=== PATIENT | male | born 1975 | race Caucasian/White ===

== ENCOUNTER 2018-05-25 22:39 | Observation (INO) | payer MEDICARE, BC ==
[2018-05-25] MEDS ORDERED: IPRATROPIUM-ALBUTEROL 3 ML NEB INHALATION STA (23:27)
[2018-05-25] MEDS ORDERED: predniSONE 20 MG TAB PO STA (23:27)
--- NOTE | 2018-05-25 23:29 | ED ---
SOB HPI - General Chief Complaint: Shortness of Breath Stated Complaint: Swallowed FB Time Seen by Provider: 05/25/18 23:19 Source: patient Mode of arrival: ambulatory Limitations: no limitations - History of Present Illness Initial Comments: 42-year-old male with history of COPD presenting with worsening shortness of breath. Patient states that he had tooth pulled the Saturday before last and had gauze in the tooth area. Three days ago he had a coughing fit and felt himself inhale the gauze. Since then he has had a foreign body sensation in the anterior aspect of his neck and worsening shortness of breath. Patient states he was normally on chronic steroids but stopped taking them secondary to having the tooth pulled. He has also been sleeping in his garage and scraping the malone on his house. He was wearing a mask but not a respirator. States he has completed his course of antibiotics. He denies ever being intubated for COPD. He denies using home O2. - Related Data Home Medications Medication Instructions Recorded Confirmed Albuterol Inhaler [Ventolin Hfa 2 puff INHALATION RT-Q6H PRN 05/26/18 05/26/18 Inhaler] Cetirizine HCl [Zyrtec] 10 mg PO DAILY 05/26/18 05/26/18 Ipratropium-Albuterol Nebulize 3 ml INHALATION RT-QID PRN 05/26/18 05/26/18 [Duoneb 0.5 mg-3 mg/3 ml Soln] Montelukast [Singulair] 10 mg PO HS 05/26/18 05/26/18 Previous Rx's Medication Instructions Recorded Albuterol Inhaler [Ventolin Hfa 1 - 2 puff INHALATION RT-Q6H PRN 05/27/18 Inhaler] 30 Days #1 inhaler Cefuroxime Axetil [Ceftin] 500 mg PO BID 8 Days #16 tab 05/27/18 Ipratropium-Albuterol Nebulize 3 ml INHALATION QID 30 Days #3 box 05/27/18 [Duoneb 0.5 mg-3 mg/3 ml Soln] Montelukast [Singulair] 10 mg PO HS 30 Days #30 tab 05/27/18 predniSONE 10 mg PO DAILY 9 Days #27 tab 05/27/18 Allergies Allergy/AdvReac Type Severity Reaction Status Date / Time levofloxacin [From Levaquin] Allergy Rash/Hives Verified 05/26/18 09:02 Review of Systems ROS Statement: Those systems with pertinent positive or pertinent negative responses have been documented in the HPI. Review of Systems Constitutional: Denies fever, chills Eyes: Denies change in vision, Denies pain Ears, nose, mouth, throat: Denies headaches, Denies sore throat Cardiovascular: Denies chest pain. Denies palpitations Respiratory: Positive shortness of breath, Positive cough Gastrointestinal: Denies abdominal pain. Denies nausea, vomiting, diarrhea. Genitourinary: Denies hematuria, Denies infections Musculoskeletal: Denies pain, Denies swelling Integumentary: Denies rash Neurological: Denies headache, focal weakness, focal numbness Psychiatric: Denies anxiety, Denies depression Hematologic/Lymphatic: Denies easy bleeding or bruising ROS Other: All systems not noted in ROS Statement are negative. Past Medical History Past Medical History: COPD History of Any Multi-Drug Resistant Organisms: None Reported Past Surgical History: Cholecystectomy Past Psychological History: No Psychological Hx Reported Smoking Status: Never smoker Past Alcohol Use History: None Reported Past Drug Use History: None Reported - Past Family History Father History Unknown: Yes Mother Family Medical History: Cancer Additional Family Medical History / Comment(s): Mother had breast cancer. Maternal grandmother had breast cancer. General Exam - General Exam Comments Initial Comments: General: Awake, alert, No acute Distress HENT: Normocephalic. Atraumatic Eyes: PERRL. EOMI. No scleral icterus. No injected conjunctiva Neck: Full ROM Chest/Lungs: Tachypneic. Wheezes diffusely. Accessory muscle use. Two word conversational dyspnea. Cardiac: Sinus tachycardia . No murmurs or rubs Abdomen/GI: [Soft, nontender, nondistended. No rebound, guarding, or rigidity. Musculoskeletal: Full ROM Skin: Warm, dry, intact Neurologic: A/Ox3, no weakness, no sensory deficit, no abnormal gait, no coordination deficit Limitations: no limitations Course Vital Signs 05/25/18 05/25/18 05/25/18 23:02 23:45 23:50 Temperature 98.8 F Pulse Rate 108 H 114 H 117 H Respiratory 24 Rate Blood Pressure 153/91 O2 Sat by Pulse 91 L Oximetry Medical Decision Making - Medical Decision Making 42-year-old male presenting with shortness of breath. Initial exam the patient is awake, alert, and is to her conversational dyspnea. Breath sounds diffusely with wheezing. He states he inhaled the gauze from his mouth. There is no decreased breath sounds. His work of breathing improved with steroids and a DuoNeb. His tachycardia resolved and he had no more conversational dyspnea. Patient could've COPD exacerbation secondary to being off his prednisone for his tooth extraction. It is also possible that the patient did inhale his gauze. CT neck and chest ordered to evaluate for foreign body. Patient requires admission for COPD exacerbation. Patient's care signed out to on coming physician while awaiting admission. - Lab Data Result diagrams: 05/26/18 02:42 05/26/18 02:42 Lab Results 05/26/18 05/26/18 Range/Units 02:42 02:42 WBC 10.6 (3.8-10.6) k/uL RBC 5.82 (4.30-5.90) m/uL Hgb 16.4 (13.0-17.5) gm/dL Hct 47.8 (39.0-53.0) % MCV 82.2 (80.0-100.0) fL MCH 28.2 (25.0-35.0) pg MCHC 34.3 (31.0-37.0) g/dL RDW 12.8 (11.5-15.5) % Plt Count 258 (150-450) k/uL Neutrophils % 78 % Lymphocytes % 15 % Monocytes % 3 % Eosinophils % 3 % Basophils % 0 % Neutrophils # 8.3 H (1.3-7.7) k/uL Lymphocytes # 1.6 (1.0-4.8) k/uL Monocytes # 0.3 (0-1.0) k/uL Eosinophils # 0.3 (0-0.7) k/uL Basophils # 0.0 (0-0.2) k/uL Sodium 140 (137-145) mmol/L Potassium 4.8 (3.5-5.1) mmol/L Chloride 103 (98-107) mmol/L Carbon Dioxide 30 (22-30) mmol/L Anion Gap 7 mmol/L BUN 10 (9-20) mg/dL Creatinine 0.80 (0.66-1.25) mg/dL Est GFR (CKD-EPI)AfAm >90 (>60 ml/min/1.73 sqM) Est GFR (CKD-EPI)NonAf >90 (>60 ml/min/1.73 sqM) Glucose 139 H (74-99) mg/dL Calcium 10.0 (8.4-10.2) mg/dL Disposition Clinical Impression: COPD exacerbation, Diastolic congestive heart failure Disposition: ADMITTED IP TO THIS HOSP Condition: Good Decision to Admit Reason: Admit from EC
--- NOTE | 2018-05-26 00:05 | XR ---
EXAMINATION TYPE: XR chest 2V DATE OF EXAM: 05/25/2018 COMPARISON: 06/21/2012 HISTORY: Difficulty breathing TECHNIQUE: Frontal and lateral views of the chest are obtained. FINDINGS: Heart and mediastinum are normal. Lungs are clear of infiltrate. There is pulmonary hyperi nflation. Bony thorax is intact. There is no sign of pleural effusion. IMPRESSION: There is probably some COPD that is a change compared to last exam. Pulmonary hyperinfla tion is significantly more than last exam. I do not see evidence for atelectasis and bronchial obstru ction.
--- NOTE | 2018-05-26 01:13 | CT ---
EXAMINATION TYPE: CT chest wo con DATE OF EXAM: 05/26/2018 COMPARISON: 08/19/2012 HISTORY: Prior on 2011, pt swallowed a piece of gauze during tooth extraction 4 days ago, pt is SOB, history of COPD CT DLP: 803.70 mGycm. Automated Exposure Control for Dose Reduction was Utilized. TECHNIQUE: CT scan of the thorax is performed without IV contrast. FINDINGS: There is diffuse mild pulmonary emphysema. There is pulmonary hyperinflation. There is no pleural eff usion. Heart size is normal. There is no pericardial effusion. The lungs are clear of consolidation. There are no hilar masses. There is no mediastinal adenopathy. The bony thorax is intact. IMPRESSION: Pulmonary emphysema. No significant change compared to old exam. Esophagus is not dilated . There is no sign of esophageal foreign body.
--- NOTE | 2018-05-26 01:27 | CT ---
EXAMINATION TYPE: CT soft tissue neck wo con DATE OF EXAM: 05/26/2018 HISTORY: pt swallowed a piece of gauze during tooth extraction 4 days ago, pt is SOB, history of COPD COMPARISON: CT DLP: 803.70 mGycm. Automated Exposure Control for Dose Reduction was Utilized. TECHNIQUE: Multiple axial sections were obtained from the frontal sinuses to the thoracic inlet with no contrast. FINDINGS: Trachea appears normal. Epiglottis is normal. There is no evidence of pharyngeal mass. Epiglottis ellen ears normal. There is no evidence of cervical esophageal foreign body. Parotid glands are symmetric. Submandibular salivary glands are symmetric. I see no cervical adenopathy. There are bilateral cervic al lymph nodes that measure up to 1 cm. Cervical vertebra appear intact. Tonsils and adenoids appear within normal limits. IMPRESSION: Negative CT scan of the neck. No evidence of a foreign body.
[2018-05-26 02:51] LABS: Basophils % (A) 0 %; Eosinophils # (A) 0.3 k/uL (0-0.7); Eosinophils % (A) 3 %; HCT 47.8 % (39.0-53.0); HGB 16.4 gm/dL (13.0-17.5); Lymphocytes # (A) 1.6 k/uL (1.0-4.8); Lymphocytes % (A) 15 %; MCH 28.2 pg (25.0-35.0); MCHC 34.3 g/dL (31.0-37.0); MCV 82.2 fL (80.0-100.0); Mean Platelet Volume 7.3; Monocytes # (A) 0.3 k/uL (0-1.0); Monocytes % (A) 3 %; Neutrophils # (A) 8.3 k/uL (1.3-7.7); Neutrophils % (A) 78 %; Platelet Count 258 k/uL (150-450); RBC 5.82 m/uL (4.30-5.90); RDW 12.8 % (11.5-15.5); WBC 10.6 k/uL (3.8-10.6)
[2018-05-26 03:02] LABS: Anion Gap 7 mmol/L; Blood Urea Nitrogen 10 mg/dL (9-20); Carbon Dioxide 30 mmol/L (22-30); Chloride 103 mmol/L (98-107); Glucose 139 mg/dL (74-99); Potassium 4.8 mmol/L (3.5-5.1); Sodium 140 mmol/L (137-145)
[2018-05-26] MEDS ORDERED: IPRATROPIUM-ALBUTEROL 3 ML NEB INHALATION PRN (04:31)
[2018-05-26] MEDS ORDERED: SODIUM CHLORIDE 0.9% 1,000 ML IV SCH (04:45)
[2018-05-26] MEDS: IPRATROPIUM-ALBUTEROL 3 ML NEB INHALATION SCH ×4 (07:24→20:03)
[2018-05-26] MEDS: predniSONE 20 MG TAB PO SCH (08:59)
--- NOTE | 2018-05-26 13:35 | P.CNPUL ---
History of Present Illness Consult date: 05/26/18 Requesting physician: Valentino Foster Reason for consult: COPD Chief complaint: Shortness of breath and for his body sensation in the back of the throat. History of present illness: This is a 42-year-old white male with history of COPD, seen in my office many years ago, patient was told that he has severe COPD, and he was placed on multiple bronchodilators, not seen in our office since. Patient was admitted yesterday mostly with symptoms of shortness of breath, but seems to be concerned that he had one of his teeth pulled, and he had a piece of gauze placed by the dentist, he is almost certain that he aspirated that piece of gauze when he was coughing. Patient is complaining of a foreign body sensation in the anterior aspect of the right neck area. And he believes that this is making him more short of breath. CT of the neck and CT of the chest were both negative. No evidence of foreign body, but the patient is again convinced that he has a piece of gauze lodged in the back of his throat. Hence I have evaluated the patient, and I recommended bronchoscopy and for airway examination to put the issue to rest. This will be scheduled to be done tomorrow. In the meantime the patient denies any headache, no blurred vision, no dizziness, no nausea no vomiting no abdominal pain no melena no hematemesis is no dysuria and no frequency no urgency. Patient does have history of chronic shortness of breath and seems to be more pronounced since this admission. Presently on bronchodilators for underlying COPD. Review of Systems 14 point review of systems were obtained, please refer to pertinent positives and negatives as noted in HPI. 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 History of Any Multi-Drug Resistant Organisms: None Reported Past Surgical History: Cholecystectomy, Hernia Repair Additional Past Surgical History / Comment(s): Umbilical and bilateral inguinal hernia repairs. Past Anesthesia/Blood Transfusion Reactions: No Reported Reaction Smoking Status: Former smoker - Past Family History Father History Unknown: Yes Mother Family Medical History: Cancer Additional Family Medical History / Comment(s): Mother had breast cancer. Maternal grandmother had breast cancer. Medications and Allergies Home Medications Medication Instructions Recorded Confirmed Type Albuterol Inhaler [Ventolin Hfa 2 puff INHALATION RT-Q6H PRN 05/26/18 05/26/18 History Inhaler] Cetirizine HCl [Zyrtec] 10 mg PO DAILY 05/26/18 05/26/18 History Ipratropium-Albuterol Nebulize 3 ml INHALATION RT-QID PRN 05/26/18 05/26/18 History [Duoneb 0.5 mg-3 mg/3 ml Soln] Montelukast [Singulair] 10 mg PO HS 05/26/18 05/26/18 History predniSONE 10 mg PO DAILY 05/26/18 05/26/18 History Allergies Allergy/AdvReac Type Severity Reaction Status Date / Time [facility] Allergy Rash/Hives Verified 05/26/18 09:02 Physical Exam Vitals: Vital Signs Temp Pulse Pulse Resp BP BP Pulse Ox 05/26/18 11:30 88 05/26/18 11:20 94 05/26/18 07:40 98.7 F 75 18 134/78 91 L 05/26/18 07:38 84 05/26/18 07:25 94 05/26/18 06:17 98.2 F 18 153/92 93 L 05/26/18 06:06 98 F 90 22 140/83 92 L 05/25/18 23:50 117 H 05/25/18 23:45 114 H 05/25/18 23:02 98.8 F 108 H 24 153/91 91 L Intake and Output 05/25/18 05/26/18 05/26/18 22:59 06:59 14:59 Other: Weight 80.286 kg Physical Exam: Revealed a 42-year-old white male in no distress. Head: Atraumatic, normocephalic. HEENT:[Neck is supple.] [No neck masses.] [No thyromegaly.] [No JVD.] PERRLA, EOMI, throat is clear, no icterus, no stridor. Chest: [Diminished breath sounds at the bases, no crackles, no rhonchi, no wheezes. Cardiac Exam: [Normal S1 and S2, no S3 gallop, no murmur.] Abdomen: [Soft, nontender, no megaly, no rebound, no guarding, normal bowel sounds.] Extremities: [No clubbing, no edema, no cyanosis.] Neurological Exam: [No focal neurologic deficit.] Psychiatric: Normal mood affect and mental status examination. Lymphatics: No lymphadenopathy. Musculoskeletal no deformities, no limitation in range of motion. Strength equal bilaterally. Skin: No rashes. Results - Laboratory Findings CBC and BMP: 05/26/18 02:42 05/26/18 02:42 Abnormal lab findings: Abnormal Labs 05/26/18 05/26/18 02:42 02:42 Neutrophils # 8.3 H Glucose 139 H - Diagnostic Findings Chest x-ray: image reviewed CT scan - chest: image reviewed (As noted in HPI.) Assessment and Plan Assessment: Impression: 1 acute exacerbation of COPD 2 chronic hypoxic respiratory failure secondary to COPD 3 possible foreign body aspiration, hence the patient will undergo bronchoscopy and evaluation for foreign body aspiration. This will be done tomorrow in a.m. Recommendation: Continue present course of bronchodilators including albuterol, Atrovent, Singulair, prednisone, and I will add Symbicort. We'll continue to follow. Time with Patient: Greater than 30
[2018-05-26] MEDS ORDERED: MIDAZOLAM 2 MG/2 ML VIAL IV PRN (15:37)
[2018-05-26] MEDS ORDERED: LIDOCAINE 1% 20 ML VIAL (10MG/ML) FOR IV START INTRADERMA PRN (15:37)
[2018-05-26] MEDS: LACTATED RINGERS 1,000 ML IV SCH (17:17)
[2018-05-26] MEDS: SYMBICORT 160-4.5 MCG INHALER INHALATION SCH (20:50)
[2018-05-26] MEDS ORDERED: MONTELUKAST 10 MG TAB PO SCH (21:00)
--- NOTE | 2018-05-26 22:43 | HP ---
HISTORY AND PHYSICAL DATE OF SERVICE: 05/26/2018 CHIEF COMPLAINT: Shortness of breath. HISTORY OF PRESENT ILLNESS: This 42-year-old gentleman with a past medical history of multiple medical issues, including asthma, COPD, history of pneumonia, dysfibrinogenemia, history of ADHD, being followed by Dr. Lewis as well as Dr. Islas in the outpatient setting, had a dental extraction a few days ago. The patient was using gauze and patient had incessant coughing. Patient apparently aspirated the gauze. The patient was able to feel the gauze in the neck moving around, according to him. The patient underwent a CT scan of the neck and chest which showed significant abnormalities of the COPD; otherwise no evidence of any foreign body. Patient was admitted for further evaluation and treatment. There is no history of any fever, rigor or chills. No history of headache, loss of consciousness, seizures. Evaluation by Dr. Israel is in progress at this time. PAST MEDICAL HISTORY: 1. COPD. 2. History of asthma. 3. Dysfibrinogenemia. 4. History of ADD, ADHD. HOME MEDICATIONS: 1. Prednisone 10 mg p.o. daily. 2. Ventolin HFA 2 puffs q.6 p.r.n. 3. Singulair 10 mg at bedtime. 4. DuoNeb q.i.d. and p.r.n. 5. Zyrtec 10 mg p.o. daily. ALLERGIES: LEVAQUIN. FAMILY HISTORY: History of breast cancer in the family. SOCIAL HISTORY: History of previous smoking. No current smoking or alcohol intake. REVIEW OF SYSTEMS: ENT: No diminished hearing. No diminished vision. CARDIOVASCULAR SYSTEM: As mentioned earlier. RESPIRATORY SYSTEM: As mentioned earlier. GI: No nausea, vomiting. : No dysuria or retention. NERVOUS SYSTEM: No numbness, weakness. ALLERGY/IMMUNOLOGY: No asthma, hayfever. MUSCULOSKELETAL: As mentioned earlier. HEMATOLOGY/ONCOLOGY: No history of anemia. ENDOCRINE: No history of diabetes. CONSTITUTIONAL: As mentioned earlier. DERMATOLOGY: Negative. RHEUMATOLOGY: Negative. PSYCHIATRY: As mentioned earlier. PHYSICAL EXAMINATION: Patient is alert and oriented x3. Pulse 96, blood pressure 131/87, respiration 17, temperature 98.0, pulse ox 94% on 2 L. HEENT: Conjunctivae normal. Oral mucosa moist. NECK: No jugular venous distention. No carotid bruit. No lymph node enlargement. CARDIOVASCULAR SYSTEM: S1, S2 muffled. No S3. No S4. RESPIRATORY SYSTEM: Breath sounds diminished at the bases. Bilateral scattered rhonchi and crackles. Expiratory wheezing also present. ABDOMEN: Soft, non-tender. No mass palpable. LEGS: No edema. No swelling. NERVOUS SYSTEM: Higher functions as mentioned earlier. Moves all 4 limbs. No focal motor or sensory deficit. LYMPHATICS: No lymph node palpable in neck, axillae or groin. SKIN: No ulcer, rash, bleeding. LABS: CBC within normal limits. Glucose 139. CT scan noted. ASSESSMENT: 1. Chronic obstructive pulmonary disease, acute exacerbation, with acute purulent tracheobronchitis. 2. Rule out aspiration and foreign body. 3. History of asthma, chronic obstructive pulmonary disease. 4. History of pneumonia. 5. Dysfibrinogenemia. 6. History of cholecystectomy. 7. Attention deficit disorder, attention deficit hyperactivity disorder. 8. Remote history of nicotine dependence. RECOMMENDATIONS AND DISCUSSION: In this 42-year-old gentleman who presented with multiple complex medical issues, we will monitor the patient closely. Continue the current medications. Continue symptomatic treatment. Will optimize bronchodilator treatment. Empiric antibiotics and p.o. steroids. I would also recommend resuming the home medications. DVT prophylaxis. Bronchoscopy by Dr. Israel. Guarded prognosis because of multiple complex medical issues. See orders for further details. MMODL / IJN: [id number] /
[2018-05-26] MEDS: cefTRIAXone IN SWFI 1,000 MG/10 ML SYRINGE IVP SCH (23:10)
[2018-05-27] MEDS: IPRATROPIUM-ALBUTEROL 3 ML NEB INHALATION SCH ×3 (07:02→15:48)
[2018-05-27] MEDS: SYMBICORT 160-4.5 MCG INHALER INHALATION SCH (07:03)
[2018-05-27 07:44] VITALS: RESP 18
[2018-05-27] MEDS: predniSONE 20 MG TAB PO SCH (08:15)
[2018-05-27] MEDS: cefTRIAXone IN SWFI 1,000 MG/10 ML SYRINGE IVP SCH (08:15)
[2018-05-27] MEDS ORDERED: HEPARIN SODIUM,PORCINE 5,000 UNIT/ML 1 ML VIAL SQ SCH (09:00)
[2018-05-27] MEDS ORDERED: LORATADINE 10 MG TAB PO SCH (09:00)
[2018-05-27 10:02] VITALS: BP 129/73; TEMP 98.6
[2018-05-27] MEDS ORDERED: fentaNYL (PF) 50 MCG/ML 2 ML AMP ONE (10:12)
[2018-05-27] MEDS ORDERED: GLYCOPYRROLATE 0.2 MG/ML 2 ML VIAL ONE (10:12)
[2018-05-27] MEDS ORDERED: LIDOCAINE 1% INJ 10MG/ML (20 ML MDV) ONE (10:12)
[2018-05-27] MEDS ORDERED: MIDAZOLAM 2 MG/2 ML VIAL ONE (10:12)
[2018-05-27] MEDS ORDERED: KETAMINE 10 MG/ML 20 ML VIAL ONE (10:12)
[2018-05-27] MEDS ORDERED: PROPOFOL 10 MG/ML 20 ML VIAL IV ONE (10:12)
--- NOTE | 2018-05-27 10:21 | P.PN ---
Subjective Progress Note Date: 05/27/18 Principal diagnosis: Acute exacerbation of COPD, possible foreign body aspiration This is a 42-year-old white male with history of COPD, seen in my office many years ago, patient was told that he has severe COPD, and he was placed on multiple bronchodilators, not seen in our office since. Patient was admitted yesterday mostly with symptoms of shortness of breath, but seems to be concerned that he had one of his teeth pulled, and he had a piece of gauze placed by the dentist, he is almost certain that he aspirated that piece of gauze when he was coughing. Patient is complaining of a foreign body sensation in the anterior aspect of the right neck area. And he believes that this is making him more short of breath. CT of the neck and CT of the chest were both negative. No evidence of foreign body, but the patient is again convinced that he has a piece of gauze lodged in the back of his throat. Hence I have evaluated the patient, and I recommended bronchoscopy and for airway examination to put the issue to rest. This will be scheduled to be done tomorrow. In the meantime the patient denies any headache, no blurred vision, no dizziness, no nausea no vomiting no abdominal pain no melena no hematemesis is no dysuria and no frequency no urgency. Patient does have history of chronic shortness of breath and seems to be more pronounced since this admission. Presently on bronchodilators for underlying COPD. On 05/27/2018 patient seen in follow-up on surgical floor. he is resting in bed , in no acute distress, lung sounds are positive for some expiratory wheezing, overall patient states there is slight improvement. He was able to ambulate in the hallway, he did desaturate to 88%, she does have some coughing spells during which she desaturates but then he recovers. He is on supplemental oxygen , currently at 2 L per nasal cannula and O2 sat is 95% at rest. He is afebrile , vital signs are stable. No new lab work or chest x-rays today. Patient remains on empiric antibiotics in the form of Rocephin, nebulized bronchodilators, oral prednisone, and Symbicort. Patient will have a bronchoscopy today for inspection of his airways to rule out presence of foreign body, specifically piece of gauze from his dental procedure. And the patient is in agreement with the plan. Is hoping to be able to go home after the procedure. Objective - Vital Signs Vital signs: Vital Signs Temp 98.6 F 05/27/18 09:55 Pulse 72 05/27/18 09:55 Resp 18 05/27/18 09:55 BP 129/73 05/27/18 09:55 Pulse Ox 95 05/27/18 09:55 Intake & Output 05/26/18 05/27/18 05/27/18 18:59 06:59 18:59 Intake Total 120 Balance 120 Intake: Oral 120 Other: Voiding Method Toilet # Voids 2 1 - Exam Physical Exam: Revealed a 42-year-old white male in no distress. Head: Atraumatic, normocephalic. HEENT:[Neck is supple.] [No neck masses.] [No thyromegaly.] [No JVD.] PERRLA, EOMI, throat is clear, no icterus, no stridor. Chest: [Diminished breath sounds at the bases, with diffuse wheezes throughout the lung edwards. Cardiac Exam: [Normal S1 and S2, no S3 gallop, no murmur.] Abdomen: [Soft, nontender, no megaly, no rebound, no guarding, normal bowel sounds.] Extremities: [No clubbing, no edema, no cyanosis.] Neurological Exam: [No focal neurologic deficit.] Psychiatric: Normal mood affect and mental status examination. Lymphatics: No lymphadenopathy. Musculoskeletal no deformities, no limitation in range of motion. Strength equal bilaterally. Skin: No rashes. - Labs CBC & Chem 7: 05/26/18 02:42 05/26/18 02:42 Assessment and Plan Plan: Assessment: 1 acute exacerbation of COPD 2 chronic hypoxic respiratory failure secondary to COPD 3 possible foreign body aspiration, hence the patient will undergo bronchoscopy and evaluation for foreign body aspiration. This will be done tomorrow in a.m. Recommendation: We'll proceed with a bronchoscopy for inspection of patient's airways to rule out foreign body aspiration Continue present course of bronchodilators including albuterol, Atrovent, Singulair, prednisone, and I will add Symbicort. We'll continue to follow. I performed a history & physical examination of the patient and discussed their management with my nurse practitioner, Yajaira Lucio. I reviewed the nurse practitioner's note and agree with the documented findings and plan of care. Lung sounds are positive for diffuse wheezes throughout the lung edwards. The findings and the impression was discussed with the patient. I attest to the documentation by the nurse practitioner. Time with Patient: Less than 30
[2018-05-27] MEDS ORDERED: LACTATED RINGERS 1,000 ML IV ONE (10:25)
--- NOTE | 2018-05-27 11:44 | PCN ---
PROCEDURE NOTE OPERATIVE REPORT: Bronchoscopy, airway examination, no biopsies were taken, and no lavage was done. PREOPERATIVE DIAGNOSES: Possible foreign body aspiration. POSTOPERATIVE DIAGNOSIS: No evidence of foreign body aspirated into the upper airways or lower airways. ANESTHESIA USED: IV conscious sedation, please refer to [employer] documentation. PROCEDURE: Patient was prepared according to the bronchoscopy protocol. The patient was placed in a supine position, O2 was applied via Ventimask, and we monitored his O2 saturation continuously. Blood pressure was intermittently monitored, and cardiac rhythm was continuously monitored. After adequate IV conscious sedation, the right naris was locally anesthetized with lidocaine. Then the bronchoscope was advanced through the right naris down to the area of the vocal cords. Thorough examination was done around the area of the vocal cords and the area of the piriform sinuses, the area of the epiglottis, there was no evidence of foreign body present, specifically we were looking for a piece of gauze. Pictures were taken of the area. Then, lidocaine was applied over the vocal cords, and the bronchoscope was advanced further down. Thorough examination was done in the subglottic area Trachea, melany, right upper lobe, right lower lobe, right lower lobe, left upper lobe lingula and left lower lobe. Minimal purulent secretions were noted and suctioned, but there was no evidence of foreign body noted in the airways. Procedure was well tolerated, no evidence of any immediate complications. The patient will be reassured about the findings. MMODL / IJN: [id number] /
[2018-05-27] MEDS: LACTATED RINGERS 1,000 ML IV SCH (13:52)
[2018-05-27 15:52] VITALS: PULSE 88
--- NOTE | 2018-05-27 16:56 | DS ---
DISCHARGE SUMMARY FINAL DIAGNOSES: 1. Chronic obstructive pulmonary disease acute exacerbation with acute purulent tracheobronchitis. 2. Suspected foreign body aspiration but negative bronchoscopy. 3. History of asthma and chronic obstructive pulmonary disease. 4. History of pneumonia. 5. Dysfibrinogenemia. 6. History of cholecystectomy. 7. Attention deficit disorder, attention deficit hyperactivity disorder. 8. Remote history of nicotine dependency. DISCHARGE CONDITION: The patient will be discharged in stable condition with guarded prognosis. Discharge cleared by Dr. Israel. HISTORY OF PRESENT ILLNESS: This 42-year-old gentleman, being followed by Dr. Lewis and Dr. Islas in the outpatient setting, was admitted with shortness of breath as well as COPD acute exacerbation. Patient was treated with bronchodilators and steroids. Because of suspicion of aspiration of a gauze piece, Dr. Israel performed a bronchoscopy which did show any foreign material. CT scan of the chest and soft tissue of the neck were also normal. On exam, vital signs are stable. Cardiovascular, S1 and S2 normal. Abdomen soft. Respiratory, few scattered rhonchi. DISCHARGE INSTRUCTIONS: 1. Diet is regular. 2. Activity limited. FOLLOWUP: Followup with Dr. Islas in 2 to 3 days. MEDICATIONS: 1. Ventolin HFA p.r.n. 2. Zyrtec 10 mg daily. 3. DuoNeb q.i.d. and p.r.n. 4. Singular 10 mg at bedtime. 5. Ceftin 500 mg p.o. b.i.d. for 8 days. 6. Singular 10 mg at bedtime. 7. Prednisone taper, that will be 40 mg daily for 3 days, 30 for 3 days, 20 for 3 days and then 10 mg maintenance. Once again, the patient will be discharged in a stable condition with guarded prognosis. MMODL / IJN: [id number] /
== END 2018-05-27 16:16 | disposition home or self-care (01) ==
LOC: EC 22:39 → 3SUR 05-26 04:34
PROVIDERS: ADMIT Hospitalist; ATTEND Hospitalist
DX: J44.1 Chronic obstructive pulmonary disease with (acute) exacerbation (principal); J44.0 Chronic obstructive pulmonary disease with (acute) lower respiratory infection; J20.9 Acute bronchitis, unspecified; J96.11 Chronic respiratory failure with hypoxia; I50.30 Unspecified diastolic (congestive) heart failure; Z98.818 Other dental procedure status; Z90.49 Acquired absence of other specified parts of digestive tract; F90.9 Attention-deficit hyperactivity disorder, unspecified type; D68.2 Hereditary deficiency of other clotting factors; Z79.52 Long term (current) use of systemic steroids; Z79.899 Other long term (current) drug therapy; Z88.1 Allergy status to other antibiotic agents; Z87.01 Personal history of pneumonia (recurrent); Z87.891 Personal history of nicotine dependence; Z80.3 Family history of malignant neoplasm of breast
CPT/HCPCS: 99285 ×2; 96376; 96361 ×2; 96374; 36415; 94640 ×4; 80048; 85025; 71046; 70490; 71250; 31622; G0378 ×2; J2250; J2001; J0696 ×2; J3010; J2704; J7512 ×3; 31624

== ENCOUNTER → 2023-02-20 | Outpatient (CLI) | payer MEDICARE ==
[2023-02-20 13:39] LABS: Basophils % (A) 0 %; Eosinophils # (A) 0.3 k/uL (0-0.7); Eosinophils % (A) 3 %; Lymphocytes # (A) 2.3 k/uL (1.0-4.8); Lymphocytes % (A) 26 %; MCHC 33.3 g/dL (31.0-37.0); MCV 84.2 fL (80.0-100.0); Mean Platelet Volume 7.7; Monocytes # (A) 0.5 k/uL (0-1.0); Monocytes % (A) 6 %; Neutrophils # (A) 5.6 k/uL (1.3-7.7); Neutrophils % (A) 63 %; Platelet Count 228 k/uL (150-450); RDW 12.7 % (11.5-15.5); WBC 8.9 k/uL (3.8-10.6)
[2023-02-20 15:22] LABS: Total Eosinophil Count 249 #EOS/uL (150-300)
[2023-02-21 01:51] LABS: Alternaria alternata IgE <0.10 kU/L; Aspergillus fumagatus IgE <0.10 kU/L; Birch IgE <0.10 kU/L; Cat Epith & Dander IgE 5.35 kU/L; Cladosporian herbarum IgE <0.10 kU/L; Cockroach IgE <0.10 kU/L; Dog Dander IgE 8.11 kU/L; Elm IgE <0.10 kU/L; Maple (Box Elder) IgE <0.10 kU/L; Oak IgE <0.10 kU/L; Ragweed,Common IgE 1.67 kU/L; Red Top (Bentgrass) IgE <0.10 kU/L
[2023-02-21 02:09] LABS: ALT 41 U/L (10-49); AST 22 U/L (14-35); African American GFR (CKD) 109.8 (60.0-200.0); Albumin 4.8 g/dL (3.8-4.9); Albumin/Globulin Ratio 1.65 (1.60-3.17); Alkaline Phosphatase 116 U/L (41-126); BUN/Creat Ratio 19.98 Ratio (12.00-20.00); Blood Urea Nitrogen 18.8 mg/dL (9.0-27.0); Calcium 9.9 mg/dL (8.7-10.3); Carbon Dioxide 27.4 mmol/L (20.0-27.5); Chloride 96 mmol/L (96-109); Chol/HDL Ratio 6.68 Ratio; Globulin 2.9 g/dL (1.6-3.3); Glucose 246 mg/dL (70-110); LDL Cholesterol,Calculated 157.7 mg/dL (0.0-131.0); Non-African American GFR(CKD) 94.7 (60.0-200.0); Potassium 4.7 mmol/L (3.5-5.5); Sodium 136 mmol/L (135-145); Total Protein 7.7 g/dL (6.2-8.2)
== END | disposition home or self-care (01) ==
LOC: LABWHC1 12:35
PROVIDERS: ATTEND Internal Medicine Critical Care Medicine
DX: Z00.00 Encounter for general adult medical examination without abnormal findings (principal); J44.9 Chronic obstructive pulmonary disease, unspecified
CPT/HCPCS: 36415; 80053; 80061; 82785; 84153; 84439; 84443; 85008; 85025; 86003

== ENCOUNTER → 2023-04-30 | Outpatient (CLI) | payer MEDICARE | END | disposition home or self-care (01) | LOC: LABWHC1 10:07 | PROVIDERS: ATTEND Internal Medicine Critical Care Medicine | DX: Z00.00 Encounter for general adult medical examination without abnormal findings (principal) | CPT/HCPCS: 36415; 82947; 83036 ==